=== PATIENT | female | born 1975 | race Hispanic/Latino ===

== ENCOUNTER 2024-12-31 16:25 | Emergency (ER) | payer SELFPAY ==
[~2024-12-31] VITALS: Ht 152.4 cm; Wt 65.8 kg
[~2024-12-31 16:25] MED LIST: TRAZ-185 PO; TYL3 PO
--- NOTE | 2024-12-31 17:43 | ERN ---
General Chief Complaint: Hand Problem/Injury Stated Complaint: RIGHT HAND PAIN Time Seen by MD: 16:28 Source: patient History of Present Illness Initial Comments Patient is a 49-year-old female coming in complaining of right hand pain. Maribell de leon states he slammed her hand in a car door two weeks ago. She states that the pain has been fluctuating intensity she is here for further evaluation. She is able to move her hand but pain is exacerbated with movement. Allergies: Coded Allergies: No Known Allergies (Unverified Allergy, Unknown, 04/24/16) Home Meds Reported Medications Acetaminophen with Codeine (Tylenol with Codeine #3) 1 Tab Tab, 1-2 TAB PO BID PRN for PAIN LEVEL 5 TO 10, #30 TAB 04/27/16 Trazodone HCl (Trazodone HCl) 50 Mg Tablet, 50 MG PO HS, TAB 04/24/16 Past Medical History Past Medical History: No Pertinent History Past Surgical History: Hysterectomy, BTL ROS Dictation CONSTITUTIONAL: No chills, no fever, no weakness, no diaphoresis, no malaise. HEAD/FACE: No signs of trauma. EENT: No eye pain, no blurred vision, no tearing, no double vision, no ear pain, no ear discharge, no nose pain, no nasal congestion, no throat pain, no throat swelling, no mouth pain. RESPIRATORY: No cough, no orthopnea, no SOB, no stridor, no wheezing. CARDIOVASCULAR: No chest pain, no edema, no palpitations, no syncope. GASTROINTESTINAL/ABDOMINAL: No abdominal pain, no constipation, no diarrhea, no nausea, no vomiting. GENITOURINARY: No abnormal discharge, no dysuria, no frequent urination, no hematuria. No complaints of pain in the genitals. MUSCULOSKELETAL: No back pain, no gout, joint pain, no joint swelling, no muscle pain, no muscle stiffness, no neck pain. INTEGUMENTARY: No change in color, no change in hair/nails, no dryness, no lesion, no lumps, no rash. NEUROLOGICAL/PSYCH: No anxiety, not depressed, no emotional problem, no headache, no numbness, no pre-existing deficit, no history of seizures, no tremors, no weakness. HEMATOLOGIC/LYMPHATIC: Not anemic, no history of blood clots, no apparent bleeding, no bruising, glands not swollen. All Systems Negative, Except as Noted. Physical Exam Physical Exam Dictation VITAL SIGNS: Reviewed. GENERAL APPEARANCE: Alert, oriented x3, no acute distress, obese. HEAD AND FACE: Non-traumatic. EYES: PERRL, pink conjunctivas, eyelid no trauma, anterior chamber clear. EARS: Pinnas intact and no signs of trauma or erythema. Ear canals clear and no discharge. TMs no erythema. NOSE: No discharge, no bleeding. OROPHARYNX: Mouth normal, teeth no caries, tongue pink. Pharynx clear, no erythema. Tonsils no exudates, no abscesses noted. Mucous membrane moist. NECK: Supple, non-tender, no thyromegaly, no masses, no JVD, no bruits. BREAST: Deferred. CHEST: No tenderness, no crepitus, no paradoxical movement, no retractions. LUNGS: Clear, well-ventilated, symmetric, no rales, no wheezing, no rhonchi, no stridor, good breath sounds bilaterally. HEART: Regular rate, regular rhythm, no murmur, no gallops. VASCULAR: No peripheral edema. ABDOMEN: Soft, positive bowel sounds, nondistended, no guarding, nontender, no rebound, no masses no hepatomegaly, no splenomegaly, no Gallegos's sign, no hernias. RECTAL: Deferred. GENITAL: Deferred. NEUROLOGICAL: Normal speech, gross motor function intact, gross sensory function intact. MUSCULOSKELETAL: Neck nontender, full range of motion, back nontender, full range of motion. EXTREMITIES: Nontender, full range of motion. hand tenderness in the lateral a spect of the right hand SKIN: Color pink, dry, no turgor, no rash, no lacerations, no abrasions, no contusions. LYMPHATICS: Deferred. Results Laboratory and Microbiology Labs Reviewed?: Yes EKG/XRAY/US/CT/MRI X-RAY Comment Hand x-ray-5th metacarpal fracture displaced minimal MDM MDM: Differential diagnosis: Metacarpal fracture, distal metacarpal fracture, boxer's fracture, Rationale: Tests considered and ordered secondary to shared decision making include: Previous outside records reviewed: Old ER visits. Risk of complication and/or morbidity or mortality of patient management: None Medications-Per medication reconciliation Need for hospitalization: Patient does not meet criteria for hospitalization. Patient is a 49-year-old female coming in complaining of right hand pain. She states that she hit her hand with a car door. X-ray disclose 5th metacarpal fracture. Gutter splint to be placed I did advised her appropriate follow up with PCP we will also be referring to multi media specialist. ED Course Orders Procedure Category Date Status Time Hand 3+Vws Rt RAD 12/31/24 Taken 16:31 Wrist Comp 3+Vws Rt RAD 12/31/24 Taken 16:31 Orphenadrine Citrate PHA 12/31/24 Logged (Norflex) 18:00 Current Medications Medications (Trade) Dose Ordered Sig/Kylah Route PRN Reason Start Time Stop Time Status Last Admin Dose Admin Orphenadrine Citrate (Norflex) 60 mg ONCE ONCE IM 12/31/24 18:00 12/31/24 18:01 UNV Vital Signs Date Time Temp Pulse Resp B/P (MAP) Pulse Ox O2 Delivery O2 Flow Rate FiO2 12/31/24 16:27 98.1 78 16 139/91 98 Room Air DX & DISP Disposition: Discharge Departure Impression: Primary Impression: Natacha's metacarpal fracture, neck, closed Condition: Stable Scripts Naproxen (Naproxen) 500 Mg Tablet 1 TAB PO BID for pain for 7 Days, #14 TAB 0 Refills Prov: LATIA RIOJAS MD 12/31/24 Additional Instructions: FOLLOW-UP WITH PRIMARY CARE PROVIDER IN 1 TO 2 DAYS. TAKE MEDICATIONS DIRECTED HERE IN THE EMERGENCY ROOM. OKAY TO CONTINUE HOME MEDICATIONS UNLESS OTHERWISE DISCUSSED DURING YOUR VISIT IN THE EMERGENCY ROOM TODAY. RETURN TO YOUR NEAREST EMERGENCY ROOM IF SYMPTOMS WORSEN OR IF THERE IS NO IMPROVEMENT. CALL 911 IF YOU NEED IMMEDIATE ASSISTANCE. TAKE TYLENOL [id number] NEEDED AND IF NO CONTRAINDICATIONS ARE PRESENT. INCREASE ORAL HYDRATION. A WOUND CULTURE OR URINE CULTURE WAS ORDERED HERE IN THE EMERGENCY ROOM DEPARTMENT PLEASE FOLLOW-UP WITH PRIMARY CARE PROVIDER AND ADVISE THEM TO GET REPEAT PORTS FROM OUR FACILITY. IF YOU HAD ANY LATOYA WRAP/SPLINTS THAT WERE APPLIED HERE, PLEASE DO NOT REMOVE THEM UNTIL YOU SEE YOUR PRIMARY CARE OR SPECIALTY. Referrals: Referrals: SELF,REFERRAL (PCP) AJSON JORGE MD, WILLIAM A DO Time of Disposition: 17:46 LATIA RIOJAS MD December 31, 2024 17:43
[2024-12-31] MEDS ORDERED: NAPR-1194 PO (17:47)
[2024-12-31] MEDS: ORPHENADRINE 60MG/2ML IM ONE (18:01)
--- NOTE | 2024-12-31 18:06 | HMCIMG ---
RIGHT WRIST RADIOGRAPHS - 3 VIEWS INDICATION: Pain COMPARISON: None FINDINGS: AP, lateral, and oblique views. No acute fracture or subluxation identified. Scaphoid bone is intact. Ulnar variance is within normal limits. Carpal alignment is well maintained. No radiopaque foreign body noted. IMPRESSION: No evidence for fracture or dislocation.
--- NOTE | 2024-12-31 18:08 | HMCIMG ---
RIGHT HAND RADIOGRAPHS - 3 VIEWS INDICATION: Pain COMPARISON: None FINDINGS: AP, lateral, and oblique views. Nondisplaced transverse fracture through the fifth metacarpal neck and associated mild volar angulation. Scaphoid bone is intact. Carpal alignment and ulnar variance is within normal limits. No radiopaque foreign body noted. IMPRESSION: Nondisplaced transverse fracture through the fifth metacarpal neck and associated mild volar angulation.
[2024-12-31 18:17] VITALS: BP 137/80; PULSE 80; RESP 16; TEMP 97.9; O2SAT 98
== END 2024-12-31 18:24 | disposition home or self-care (01) ==
LOC: EDH 16:25
DX: S62.336A Displaced fracture of neck of fifth metacarpal bone, right hand, initial encounter for closed fracture (principal); Z90.710 Acquired absence of both cervix and uterus; W23.0XXA Caught, crushed, jammed, or pinched between moving objects, initial encounter; Y93.89 Activity, other specified; Y92.89 Other specified places as the place of occurrence of the external cause; Y99.8 Other external cause status
CPT/HCPCS: 29125; 73110; 73130; 99284; J2360